=== PATIENT | male | born 1930 | race Caucasian/White ===

== ENCOUNTER 2016-10-13 10:16 | Emergency (ER) | payer OTHER ==
[~2016-10-13 10:16] MED LIST: ASPIRIN 81 LOW81 MG PO; CALCIUM CARBON500 MG PO; COUMADIN5 MG PO; CRESTOR20 MG PO; DEXILANT60 MG PO; ENABLEX15 MG PO; FISH OIL1000 M1 PO; LOVENOX80 MG/0.8 SC; PLAVIX75 MG PO; POTASSIUM CHLO10 ME2 PO; REQUIP1 MG PO; TOPROL XL50 MG PO; TRAZODONE HCL50 MG PO; TYLENOL325 MG PO; VITAMIN D-31000 UNIT PO; ZANTAC 7575 MG PO
--- NOTE | 2016-10-13 11:36 | ED NURSING NOTES ---
Clinical Report - Nurses [facility] [address] [place] [address] 10/13/2016 10:16 Patient: RAULITO CALIXTO TRIAGE Triage time 10:26. Acuity: LEVEL 3. Chief Complaint: RIGHT LOWER EXTREMITY PAIN. Location of symptoms- (Pain when walking about 5 minutes.). Alert. No acute distress. DINA COMA SCORE: [place] Coma Scale: 15- eyes open spontaneously (4); best verbal response- oriented x 4 (5); best motor response- obeys commands (6). --10:45 Magy Lagos R.N. 10:10/13/16. BP: 154/84. HR: 86. RR: 18. O2 saturation: 98%. Temp: 98.7 F. Pain level now: 6/10. Additional comments: walking makes it go to 8/10 . --10:45 Magy Lagos R.N. 10:10/13/16. BP: 154/84. HR: 86. RR: 18. O2 saturation: 98%. Temp: 98.7 F. Pain level now: 6/10. Additional comments: walking makes it go to 8/10 . --10:46 Magy Lagos R.N. Weight: 29.4 kg stated. Height/Length: 66 inches Per Patient. BMI: 10.5. --10:32 Magy Lagos R.N. Medications Calcium 600 Oral (Tablet 600 mg) 1 tablet, bid as needed. Crestor Oral 20 mg, pm. Dexilant Oral (Capsule Delayed Release 60 mg) 1 capsule, bid. Enablex Oral 15mg pm. Fish Oil Oral (Capsule 1000 mg) 1 capsule, bid. --10:37 Magy Lagos R.N. Potassium Oral 10 mg , daily. Requip Oral 1 mg, bid . Toprol XL Oral 50 mg, at bedtime. Vitamin D Oral 2000mg bid . Xarelto Oral 20mg am. --10:37 Magy Lagos R.N. Fluoxitine 20mg am. --10:44 Magy Lagos R.N. Medication/allergy information source: the patient. --10:45 Magy Lagos R.N. Allergies Doxycycline. --10:37 Magy Lagos R.N. History Arrived by private vehicle. Historian: patient. Accompanied by family. Primary physician (gracie jimenez). No injury occurred. This occurred (Hurt for last 2 weeks, today got worse.). Provoking / relieving factors: worsened by walking; relieved by sitting. He has had trouble walking (pain). Has had no swelling or redness. Treatment BILLING CHECKER: None. PAST MEDICAL HX: Tetanus status: unknown. SOCIAL HX: Never smoker. No alcohol use or drug use. FALL RISK ASSESSMENT: Fall risk assessment completed. No fall risk identified. NUTRITIONAL RISK ASSESSMENT: The nutritional risk assessment revealed no deficiencies. FUNCTIONAL ASSESSMENT: Functional assessment: no impairments noted. LEARNING NEEDS ASSESSMENT: The learning needs assessment revealed no barriers. SKIN INTEGRITY ASSESSMENT: Skin integrity risk assessment completed. No skin integrity risk identified. --10:45 Magy Lagos R.N. PROBLEMS: DVT - Deep Venous Thrombosis. Lumbar Strain. Contusion. Hypercholesterolemia. Hypertension. Gastroesophageal Reflux Disease. Depression. Restless Legs Syndrome. Hyperlipidemia. Coronary Artery Disease. --10:32 Magy Lagos R.N. ADDITIONAL SURGERIES: Back Surgery. Cardiac Catheterization. Cardiac Surgery. Cholecystectomy. Coronary Artery Bypass Graft. Hip Surgery. Knee Surgery. Pacemaker. Prostatectomy. Total Hip Replacement. --10:32 Magy Lagos R.N. Interventions ID band on patient. To room. --10:45 Magy Lagos R.N. PHYSICAL ASSESSMENT Ambulatory to room. Patient gowned. GENERAL / NEURO / PSYCH: Oriented X 4. Alert. Appears in no acute distress. Appears anxious. EXTREMITIES: Limited ROM present. Increased warmth on the extremities. Right leg: tenderness. SKIN: Skin intact. Skin is warm and dry. --10:46 Magy Lagos R.N. NURSING PROGRESS NOTES Extremity elevated. Patient gowned. Two patient identifiers checked. Call light placed in reach. Side rails up x 2. Bed placed in lowest position. Brakes of bed on. Patient ready for evaluation- chart flagged. --10:46 Magy Lagos R.N. Patient ID band checked for patient name and birthdate: patient confirmed. Blood samples drawn from the left antecubital space with 21g butterfly by tech per protocol ; labeled in presence of the patient and sent to lab: red, purple and blue top. --10:59 Mary Kay Tirado 11:41 10/13/2016 Ibuprofen PO 400 mg given. Allergies verified and confirmed 5 rights. --11:41 Ashlyn Daly R.N. DISPOSITION / DISCHARGE Condition at departure: improved. No learning barriers present. Discharge instructions provided and reviewed with the patient and family. Patient verbalized understanding. Written instructions provided in Slovak. The patient was discharged home and accompanied by family. He left the Emergency Department ambulatory and via private vehicle. Family member driving. Medication list reviewed and validated. --12:06 Magy Lagos R.N. 12:05 10/13/16. BP: 138/68. HR: 62. RR: 20. O2 saturation: 99% on room air. Temp: deferred. Pain level now: 0/10. 10:25 10/13/16. BP: 154/84. HR: 86. RR: 18. O2 saturation: 98%. Temp: 98.7 F. Pain level now: 6/10. Additional comments: walking makes it go to 8/10 . --12:06 Magy Lagos R.N. Locked/Released at 10/13/2016 12:06 by Magy Lagos R.N.
--- NOTE | 2016-10-13 11:36 | ED ORDER SUMMARY ---
..... Patient: RAULITO CALIXTO OrderSheet [facility] VisitID: [id number] [address] [place] [address] 85y, M Registration Date/Time: 10/13/2016 ORDER SHEET Weight: 29.4 kg (stated) Allergies: Doxycycline GENERAL ORDERS: US Venous Right (prior left lower ext DVT) Urgent (10:36 10/13/2016 [facility]) (Ack 10:41 LTapper) (11:41 MWinterer R.N.) CBC w Diff Urgent (10:36 10/13/2016 [facility]) (Ack 10:41 LTapper) (11:41 MWinterer R.N.) CMP Urgent (10:36 10/13/2016 [facility]) (Ack 10:41 LTapper) (11:41 MWinterer R.N.) PTT Urgent (10:36 10/13/2016 [facility]) (Ack 10:41 LTapper) (11:41 MWinterer R.N.) PT with INR Urgent (10:36 10/13/2016 [facility]) (Ack 10:41 LTapper) (11:41 MWinterer R.N.) MEDICATION ORDERS: Ibuprofen PO 400 mg (NOW) (11:35 10/13/2016 [facility]) (Ack 11:36 MWinterer R.N.) (11:41 MWinterer R.N.) IV FLUIDS: ORDER SHEET NOTES: [Electronically signed by Magy Lagos R.N. (12:06 10/13/2016)] [Electronically signed by Jamey Ramos DO (23:40 10/13/2016)] [Electronically locked/signed by Magy Lagos R.N. (12:06 10/13/2016)]
--- NOTE | 2016-10-13 11:36 | ED ORDER SUMMARY ---
..... Patient: RAULITO CALIXTO OrderSheet [facility] VisitID: [id number] [address] [place] [address] 85y, M Registration Date/Time: 10/13/2016 ORDER SHEET Weight: 29.4 kg (stated) Allergies: Doxycycline GENERAL ORDERS: US Venous Right (prior left lower ext DVT) Urgent (10:36 10/13/2016 [facility]) (Ack 10:41 LTapper) (11:41 MWinterer R.N.) CBC w Diff Urgent (10:36 10/13/2016 [facility]) (Ack 10:41 LTapper) (11:41 MWinterer R.N.) CMP Urgent (10:36 10/13/2016 [facility]) (Ack 10:41 LTapper) (11:41 MWinterer R.N.) PTT Urgent (10:36 10/13/2016 [facility]) (Ack 10:41 LTapper) (11:41 MWinterer R.N.) PT with INR Urgent (10:36 10/13/2016 [facility]) (Ack 10:41 LTapper) (11:41 MWinterer R.N.) MEDICATION ORDERS: Ibuprofen PO 400 mg (NOW) (11:35 10/13/2016 [facility]) (Ack 11:36 MWinterer R.N.) (11:41 MWinterer R.N.) IV FLUIDS: ORDER SHEET NOTES: [Electronically signed by Magy Lagos R.N. (12:06 10/13/2016)] [Electronically signed by Jamey Ramos DO (23:40 10/13/2016)] [Electronically locked/signed by Magy Lagos R.N. (12:06 10/13/2016)]
--- NOTE | 2016-10-13 11:36 | ED CLINICAL REPORT ---
Clinical Report - Physicians/Mid Levels [facility] [address] [place] [address] 10/13/2016 10:16 Patient: RAULITO CALIXTO Time Seen: 10:28. Arrived- By private vehicle. Historian- patient. HISTORY OF PRESENT ILLNESS Chief Complaint: LOWER EXTREMITY PAIN. This started about 2 weeks ago and is still present. It was gradual in onset. Not waxing and waning. Severity is described as being moderate. The quality is noted to be "pain" and similar to prior episodes. Symptoms located in the area of the right leg. The patient has had swelling. He has had difficulty walking. It has been associated with pain in the right leg. No bladder dysfunction or bowel dysfunction. Patient notes the possibility of an injury. Occurred at home. Similar symptoms previously: Recent medical care: Not recently seen/assessed. REVIEW OF SYSTEMS No chest pain, difficulty breathing, fever, skin rash or neck pain. No headache, sore throat, abdominal pain, vomiting or black stools. No difficulty with urination or bloody stools. The patient has had diarrhea (for weeks). This has occurred numerous times. It has been watery. No bloody diarrhea. All systems otherwise negative, except as recorded above. PAST HISTORY ( PCP: Dr Rene Problems: DVT - Deep Venous Thrombosis. Hypercholesterolemia. Hypertension. Gastroesophageal Reflux Disease. Depression. Restless Legs Syndrome. Hyperlipidemia. Coronary Artery Disease. Surgeries: Back Surgery. Cardiac Catheterization. Cardiac Surgery. Cholecystectomy. Coronary Artery Bypass Graft. Hip Surgery. Knee Surgery. Pacemaker. Prostatectomy. Total Hip Replacement.). Medications: Fluoxitine 20mg am. Potassium Oral 10 mg , daily. Requip Oral 1 mg, bid . Toprol XL Oral 50 mg, at bedtime. Vitamin D Oral 2000mg bid . Xarelto Oral 20mg am. Calcium 600 Oral (Tablet 600 mg) 1 tablet, bid as needed. Crestor Oral 20 mg, pm. Dexilant Oral (Capsule Delayed Release 60 mg) 1 capsule, bid. Enablex Oral 15mg pm. Fish Oil Oral (Capsule 1000 mg) 1 capsule, bid. Allergies: Doxycycline. SOCIAL HISTORY Never smoker. No alcohol use or drug use. ADDITIONAL NOTES The nursing notes have been reviewed. PHYSICAL EXAM Vital Signs: 10/13/2016 10:25 BP: 154/84. HR: 86. RR: 18. O2 saturation: 98%. Temp: 98.7 F. Pain level now: 10. Appearance: Alert. Oriented X3. Patient in mild distress. Eyes: Eyes normal inspection. No pale conjunctivae or scleral icterus. ENT: Pharynx normal. Neck: Normal inspection. Neck supple. CVS: Normal heart rate and rhythm. Heart sounds normal. Respiratory: No respiratory distress. Breath sounds normal. Abdomen: Soft and nontender. Back: No tenderness. Skin: Skin intact. Skin warm and dry. Normal skin color. Normal skin turgor. Extremities: Right leg: mild tenderness located in the posterior aspect of mid leg. Neurovascular intact distally. No erythema, swelling, laceration, abrasion or ecchymosis. No foreign body or deformity. Lower extremities exhibit normal ROM. No lower extremity edema. Extremities otherwise negative. Neuro: Oriented X 3. No motor deficit. No sensory deficit. LABS, X-RAYS, AND EKG Lower Extremity Sonography: Negative exam. Indication for study: extremity pain; suspected deep venous thrombosis in the right lower extremity. The exam was performed by a electronic systems technician. Laboratory Tests: CBC w Diff: (HANNAH: 10/13/2016 10:35) ( MsgRcvd 10/13/2016 11:07) Final results Test Result Flag Units (Reference) WHITE BLOOD COUNT 8.9 K/uL (4.5-11.5) RED BLOOD COUNT 4.78 M/uL (4.50-5.90) HEMOGLOBIN 14.8 gm/dL (13.5-17.5) HEMATOCRIT 44.4 % (41.0-53.0) MEAN CELL VOLUME 93 fL (80-100) MEAN CORPUSCULAR HGB 31 pg (26-34) MEAN CORPUSCULAR HGB CONC 33 g/dL (31-37) RED CELL DISTRIBUTION WIDTH 13.3 % (11.6-14.8) PLATELET COUNT 134 L K/uL (150-400) NEUTROPHIL % 56.2 % (50-75) LYMPH % 29.3 % (25-40) MONO % 11.7 % (3-14) EOSINOPHIL % 2.5 % (0-4) BASOPHIL % 0.3 % (0-2) PT with INR: (HANNAH: 10/13/2016 10:35) ( MsgRcvd 10/13/2016 11:14) Final results Test Result Flag Units (Reference) INR 1.9 H (0.8-1.2) Low Intensity Therapy: INR 1.5-2.0 PT range 18.5-23.1Mod.Intensity Therapy: INR 2.0-3.0 PT range 23.1-31.5High Intensity Therapy: INR 2.5-3.5 PT range 27.4-35.5High Intensity Therapy 2: INR 3.0-4.0 PT range 31.5-39.3 APTT 30 SECONDS (24-34) CMP: (HANNAH: 10/13/2016 10:35) ( MsgRcvd 10/13/2016 11:22) Final results Test Result Flag Units (Reference) GLUCOSE 127 H mg/dL (70-110) BUN 19 H mg/dL (7-18) CREATININE 1.1 mg/dL (0.6-1.3) Estimated GFR >60 mL/min Estimated GFR- >60 mL/min Note: Persistent reduction over 3 months in eGFR<60 mL/min/1.73 m2 defines CKD. Patients with eGFR values>=60 mL/min/1.73 m2 may also have CKD if evidence ofpersistent proteinuria. Additional information may be foundat www.kidney.org. SODIUM 141 mmol/L (136-145) POTASSIUM 4.5 mmol/L (3.5-5.1) CHLORIDE 104 mmol/L (98-107) CARBON DIOXIDE 26 mmol/L (21-32) CALCIUM 8.6 mg/dL (8.5-10.1) TOTAL PROTEIN 6.9 g/dL (6.4-8.2) ALBUMIN 3.6 g/dL (3.3-5.0) BILIRUBIN, TOTAL 1.8 H mg/dL (0.0-1.0) ALKALINE PHOSPHATASE 60 U/L (46-116) AST (SGOT) 26 U/L (15-37) ALT (SGPT) 26 U/L (12-78) . Pulse Oximetry: 10/13/2016 10:25 O2 saturation: 98%. (FIO2 - room air). Interpretation: normal. PROGRESS AND PROCEDURES Course of Care: Ibuprofen 400 mg PO given. Patient/family counseled. Old ED records reviewed. Disposition: Discharged. Condition: stable and improved. CLINICAL IMPRESSION Right calf pain. INSTRUCTIONS Apply ice. Elevate affected areas above chest level. Warnings: Further evaluation is necessary in order to recheck abnormal lab, obtain test results, conduct further tests and assess the possibility of serious illness. It is very important to follow up with a physician. GENERAL WARNINGS: Return or contact your physician immediately if your condition worsens or changes unexpectedly, if not improving as expected, or if other problems arise. Your Current Medications: CONTINUE TAKING THE FOLLOWING MEDICATIONS: Calcium 600 Oral : Tablet 600 mg, 1 tablet bid, prn. Crestor Oral : 20 mg pm. Dexilant Oral : Capsule Delayed Release 60 mg, 1 capsule bid. Enablex Oral : 15mg pm. Fish Oil Oral : Capsule 1000 mg, 1 capsule bid. Fluoxitine 20mg am*. Potassium Oral : 10 mg daily. Requip Oral : 1 mg bid. Toprol XL Oral : 50 mg at bedtime. Vitamin D Oral : 2000mg bid. Xarelto Oral : 20mg am. OTC Medications: Motrin (available over the counter): take according to label instructions. Follow-up with: Evan Rene MD, [facility], , [address], [place], [address] Follow up in about two days. (Electronically signed by Jamey Ramos DO 10/13/2016 23:40)
--- NOTE | 2016-10-13 13:04 | DIAGNOSTIC IMAGING REPORT ---
PROCEDURE: US VENOUS - RIGHT EXT INDICATION: Right lower extremity pain. History of left deep vein thrombosis. TECHNIQUE: Color Doppler duplex imaging of the deep and superficial venous system without and with compression. COMPARISON: None. FINDINGS: Deep and superficial venous system of the right lower extremity is within normal limits. There is no evidence of deep vein thrombosis or superficial thrombophlebitis. IMPRESSION: 1. Negative venous ultrasound of the right lower extremity.
--- NOTE | 2016-10-13 23:40 | ED MED RECONCILIATION SUMMARY ---
Patient: RAULITO CALIXTO Medication Reconciliation Report [facility] VisitID: [id number] [address] [place] [address] 85y, M Registration Date/Time: 10/13/2016 Weight: 29.4 kg Height/Length: 66 in. BMI: 10.5 ALLERGIES: Doxycycline The patient's Home Medications are listed below: CONTINUE TAKING THE FOLLOWING MEDICATIONS: Calcium 600 Oral (600 mg) 1 tablet, bid Crestor Oral 20 mg, pm Dexilant Oral (60 mg) 1 capsule, bid Enablex Oral 15mg pm Fish Oil Oral (1000 mg) 1 capsule, bid Fluoxitine 20mg am Potassium Oral 10 mg , daily Requip Oral 1 mg, bid Toprol XL Oral 50 mg, at bedtime Vitamin D Oral 2000mg bid Xarelto Oral 20mg am The source(s) of the original Home Medication information: patient The following Medications were given to the patient in the Emergency Department: Ibuprofen [PO] PO 400 mg, administered: 10/13/2016 11:41:00 AM The following Medications were prescribed to the patient: Motrin (available over the counter): take according to label instructions. -- Jamey Ramos DO
--- NOTE | 2016-10-13 23:40 | ED MAR SUMMARY ---
..... Medication Administration Record [facility] [address] [place] [address] Patient: RAULITO CALIXTO Visit ID: [id number] 85y, M Weight: 29.4 kg Height/Length: 66 in BMI: 10.5 ALLERGIES: Doxycycline Given 11:41 10/13/2016 Ashlyn Daly R.N. Medication Administered: IBUPROFEN [PO], Dose: 400 mg PO. Medication Ordered: Ibuprofen PO 400 mg (NOW).
--- NOTE | 2016-10-13 23:40 | ED MED RECONCILIATION SUMMARY ---
Patient: RAULITO CALIXTO Medication Reconciliation Report [facility] VisitID: [id number] [address] [place] [address] 85y, M Registration Date/Time: 10/13/2016 Weight: 29.4 kg Height/Length: 66 in. BMI: 10.5 ALLERGIES: Doxycycline The patient's Home Medications are listed below: CONTINUE TAKING THE FOLLOWING MEDICATIONS: Calcium 600 Oral (600 mg) 1 tablet, bid Crestor Oral 20 mg, pm Dexilant Oral (60 mg) 1 capsule, bid Enablex Oral 15mg pm Fish Oil Oral (1000 mg) 1 capsule, bid Fluoxitine 20mg am Potassium Oral 10 mg , daily Requip Oral 1 mg, bid Toprol XL Oral 50 mg, at bedtime Vitamin D Oral 2000mg bid Xarelto Oral 20mg am The source(s) of the original Home Medication information: patient The following Medications were given to the patient in the Emergency Department: Ibuprofen [PO] PO 400 mg, administered: 10/13/2016 11:41:00 AM The following Medications were prescribed to the patient: Motrin (available over the counter): take according to label instructions. -- Jamey Ramos DO
--- NOTE | 2016-10-13 23:40 | ED DISCHARGE INSTRUCTIONS ---
Patient: RAULITO CALIXTO General Instructions [facility] VisitID: [id number] [address] [place] [address] 85y, M Registration Date/Time: 10/13/2016 Right calf pain. INSTRUCTIONS Apply ice. Elevate affected areas above chest level. Warnings: Further evaluation is necessary in order to recheck abnormal lab, obtain test results, conduct further tests and assess the possibility of serious illness. It is very important to follow up with a physician. GENERAL WARNINGS: Return or contact your physician immediately if your condition worsens or changes unexpectedly, if not improving as expected, or if other problems arise. Your Current Medications: CONTINUE TAKING THE FOLLOWING MEDICATIONS: Calcium 600 Oral : Tablet 600 mg, 1 tablet bid, prn. Crestor Oral : 20 mg pm. Dexilant Oral : Capsule Delayed Release 60 mg, 1 capsule bid. Enablex Oral : 15mg pm. Fish Oil Oral : Capsule 1000 mg, 1 capsule bid. Fluoxitine 20mg am*. Potassium Oral : 10 mg daily. Requip Oral : 1 mg bid. Toprol XL Oral : 50 mg at bedtime. Vitamin D Oral : 2000mg bid. Xarelto Oral : 20mg am. OTC Medications: Motrin (available over the counter): take according to label instructions. Follow-up with: Evan Rene MD, [facility], , [address], [place], [address] Follow up in about two days. ADDITIONAL INFORMATION Myofascial Pain Syndrome: Fibrositis Your pain is caused by a state of chronic muscle tension. This condition is called by various names: myofascial pain, fibrositis and trigger point pain. This can also be due to mechanical stress (such as working at a computer terminal for long periods; or work that requires repetitive motions of the arms or hands) or emotional stress (such as problems on the job or in your personal life). Sometimes there is no obvious cause. The pain can occur in the area of the muscle spasm or at a site distant to it. For example, spasm of a neck muscle can cause headache. Spasm of the muscle near the shoulder blade can cause pain shooting down the arm. Home Care: Try to identify the factors that may be causing your problem and change them: If you feel thatemotional stressis a cause of your pain, learn methods to deal more effectively with the stress in your life. These may include regular exercise, muscle relaxation techniques, meditation or simply taking time out for yourself. Consult your doctor or go to a local bookstore and review the many books and tapes available on the subject of stress reduction. If you feel that physical stress is a cause for your pain, try to modify any poor work habits. You may use acetaminophen (Tylenol) or ibuprofen (Motrin, Advil) to control pain, unless another medicine was prescribed. [NOTE: If you have chronic liver or kidney disease or ever had a stomach ulcer or GI bleeding, talk with your doctor before using these medicines.] The use of heat to the muscle (hot compress or heating pad) will be helpful to reduce muscle spasm. Some persons get relief with ice packs. Apply an ice pack (crushed or cubed ice in a plastic bag, wrapped in a towel) for 20 minutes at a time as needed. Use the method that feels best to you. Massaging the trigger point and stretching out the muscleare an important parts of prevention and treatment. Trigger point massage can be done by first applying heat to the area to warm and prepare the muscle. Have someone apply steady thumb pressure directly on the knot in the muscle (the most tender point) for 30 seconds. Release the pressure, then massage the surrounding muscle. Repeat the process, applying more pressure to the trigger point each time. Do this up to the limit of pain. With each treatment, the trigger point should become less tender and the pain should decrease. You can apply local pressure to trigger points in the back by lying on the floor with a tennis ball under the trigger point. Follow Up with your doctor as advised or if not improving within the next week. It may be necessary for you to receive physical therapy if you do not respond to home treatment alone. Get Prompt Medical Attention if any of the following occur: If your trigger point is in the chest muscles, observe for pain that becomes more severe, lasts longer, or spreads into your shoulder/arm, neck or back; you develop trouble breathing, sweating, nausea or vomiting in association with chest pain If you develop weakness or numbness in an extremity If your pain worsens, regardless of its location Ibuprofen Oral tablet What is this medicine? IBUPROFEN (eye BYOO proe fen) is a non-steroidal anti-inflammatory drug (NSAID). It is used for dental pain, fever, headaches or migraines, osteoarthritis, rheumatoid arthritis, or painful monthly periods. It can also relieve minor aches and pains caused by a cold, flu, or sore throat. How should I use this medicine? Take this medicine by mouth with a glass of water. Follow the directions on the prescription label. Take this medicine with food if your stomach gets upset. Try to not lie down for at least 10 minutes after you take the medicine. Take your medicine at regular intervals. Do not take your medicine more often than directed. A special MedGuide will be given to you by the pharmacist with each prescription and refill. Be sure to read this information carefully each time. Talk to your office manager executive assistant regarding the use of this medicine in children. Special care may be needed. What side effects may I notice from receiving this medicine? Side effects that you should report to your doctor or health skin care instructor as soon as possible: allergic reactions like skin rash, itching or hives, swelling of the face, lips, or tongue black or bloody stools, blood in the urine or in vomit breathing problems changes in vision chest pain general ill feeling or flu-like symptoms nausea or vomiting redness, blistering, peeling or loosening of the skin, including inside the mouth slurred speech or weakness on one side of the body stomach pain unexplained weight gain or swelling unusually weak or tired yellowing of eyes or skin Side effects that usually do not require medical attention (report to your doctor or health skin care instructor if they continue or are bothersome): constipation or diarrhea dizziness gas or heartburn stomach upset What may interact with this medicine? Do not take this medicine with any of the following medications: cidofovir ketorolac methotrexate pemetrexed This medicine may also interact with the following medications: alcohol aspirin diuretics lithium other drugs for inflammation like prednisone warfarin What if I miss a dose? If you miss a dose, take it as soon as you can. If it is almost time for your next dose, take only that dose. Do not take double or extra doses. Where should I keep my medicine? Keep out of the reach of children. Store at room temperature between 15 and 30 degrees C (59 and 86 degrees F). Keep container tightly closed. Throw away any unused medicine after the expiration date. What should I tell my health care provider before I take this medicine? They need to know if you have any of these conditions: asthma cigarette smoker drink more than 3 alcohol containing drinks a day heart disease or circulation problems such as heart failure or leg edema (fluid retention) high blood pressure kidney disease liver disease stomach bleeding or ulcers an unusual or allergic reaction to ibuprofen, aspirin, other NSAIDS, other medicines, foods, dyes, or preservatives or trying to get breast-feeding What should I watch for while using this medicine? Tell your doctor or healthcare professional if your symptoms do not start to get better or if they get worse. This medicine does not prevent heart attack or stroke. In fact, this medicine may increase the chance of a heart attack or stroke. The chance may increase with longer use of this medicine and in people who have heart disease. If you take aspirin to prevent heart attack or stroke, talk with your doctor or health skin care instructor. Do not take other medicines that contain aspirin, ibuprofen, or naproxen with this medicine. Side effects such as stomach upset, nausea, or ulcers may be more likely to occur. Many medicines available without a prescription should not be taken with this medicine. This medicine can cause ulcers and bleeding in the stomach and intestines at any time during treatment. Ulcers and bleeding can happen without warning symptoms and can cause . To reduce your risk, do not smoke cigarettes or drink alcohol while you are taking this medicine. You may get drowsy or dizzy. Do not drive, use machinery, or do anything that needs mental alertness until you know how this medicine affects you. Do not stand or sit up quickly, especially if you are an older patient. This reduces the risk of dizzy or fainting spells. This medicine can cause you to bleed more easily. Try to avoid damage to your teeth and gums when you brush or floss your teeth. You have been given the following additional information: Myofascial Pain Syndrome Ibuprofen Oral tablet (Electronically signed by Jamey Ramos DO 10/13/2016 23:40)
--- NOTE | 2016-10-13 23:40 | ED MAR SUMMARY ---
..... Medication Administration Record [facility] [address] [place] [address] Patient: RAULITO CALIXTO Visit ID: [id number] 85y, M Weight: 29.4 kg Height/Length: 66 in BMI: 10.5 ALLERGIES: Doxycycline Given 11:41 10/13/2016 Ashlyn Daly R.N. Medication Administered: IBUPROFEN [PO], Dose: 400 mg PO. Medication Ordered: Ibuprofen PO 400 mg (NOW).
--- NOTE | 2016-10-13 23:40 | ED DISCHARGE INSTRUCTIONS ---
Patient: RAULITO CALIXTO General Instructions [facility] VisitID: [id number] [address] [place] [address] 85y, M Registration Date/Time: 10/13/2016 Right calf pain. INSTRUCTIONS Apply ice. Elevate affected areas above chest level. Warnings: Further evaluation is necessary in order to recheck abnormal lab, obtain test results, conduct further tests and assess the possibility of serious illness. It is very important to follow up with a physician. GENERAL WARNINGS: Return or contact your physician immediately if your condition worsens or changes unexpectedly, if not improving as expected, or if other problems arise. Your Current Medications: CONTINUE TAKING THE FOLLOWING MEDICATIONS: Calcium 600 Oral : Tablet 600 mg, 1 tablet bid, prn. Crestor Oral : 20 mg pm. Dexilant Oral : Capsule Delayed Release 60 mg, 1 capsule bid. Enablex Oral : 15mg pm. Fish Oil Oral : Capsule 1000 mg, 1 capsule bid. Fluoxitine 20mg am*. Potassium Oral : 10 mg daily. Requip Oral : 1 mg bid. Toprol XL Oral : 50 mg at bedtime. Vitamin D Oral : 2000mg bid. Xarelto Oral : 20mg am. OTC Medications: Motrin (available over the counter): take according to label instructions. Follow-up with: Evan Rene MD, [facility], , [address], [place], [address] Follow up in about two days. ADDITIONAL INFORMATION Myofascial Pain Syndrome: Fibrositis Your pain is caused by a state of chronic muscle tension. This condition is called by various names: myofascial pain, fibrositis and trigger point pain. This can also be due to mechanical stress (such as working at a computer terminal for long periods; or work that requires repetitive motions of the arms or hands) or emotional stress (such as problems on the job or in your personal life). Sometimes there is no obvious cause. The pain can occur in the area of the muscle spasm or at a site distant to it. For example, spasm of a neck muscle can cause headache. Spasm of the muscle near the shoulder blade can cause pain shooting down the arm. Home Care: Try to identify the factors that may be causing your problem and change them: If you feel thatemotional stressis a cause of your pain, learn methods to deal more effectively with the stress in your life. These may include regular exercise, muscle relaxation techniques, meditation or simply taking time out for yourself. Consult your doctor or go to a local bookstore and review the many books and tapes available on the subject of stress reduction. If you feel that physical stress is a cause for your pain, try to modify any poor work habits. You may use acetaminophen (Tylenol) or ibuprofen (Motrin, Advil) to control pain, unless another medicine was prescribed. [NOTE: If you have chronic liver or kidney disease or ever had a stomach ulcer or GI bleeding, talk with your doctor before using these medicines.] The use of heat to the muscle (hot compress or heating pad) will be helpful to reduce muscle spasm. Some persons get relief with ice packs. Apply an ice pack (crushed or cubed ice in a plastic bag, wrapped in a towel) for 20 minutes at a time as needed. Use the method that feels best to you. Massaging the trigger point and stretching out the muscleare an important parts of prevention and treatment. Trigger point massage can be done by first applying heat to the area to warm and prepare the muscle. Have someone apply steady thumb pressure directly on the knot in the muscle (the most tender point) for 30 seconds. Release the pressure, then massage the surrounding muscle. Repeat the process, applying more pressure to the trigger point each time. Do this up to the limit of pain. With each treatment, the trigger point should become less tender and the pain should decrease. You can apply local pressure to trigger points in the back by lying on the floor with a tennis ball under the trigger point. Follow Up with your doctor as advised or if not improving within the next week. It may be necessary for you to receive physical therapy if you do not respond to home treatment alone. Get Prompt Medical Attention if any of the following occur: If your trigger point is in the chest muscles, observe for pain that becomes more severe, lasts longer, or spreads into your shoulder/arm, neck or back; you develop trouble breathing, sweating, nausea or vomiting in association with chest pain If you develop weakness or numbness in an extremity If your pain worsens, regardless of its location Ibuprofen Oral tablet What is this medicine? IBUPROFEN (eye BYOO proe fen) is a non-steroidal anti-inflammatory drug (NSAID). It is used for dental pain, fever, headaches or migraines, osteoarthritis, rheumatoid arthritis, or painful monthly periods. It can also relieve minor aches and pains caused by a cold, flu, or sore throat. How should I use this medicine? Take this medicine by mouth with a glass of water. Follow the directions on the prescription label. Take this medicine with food if your stomach gets upset. Try to not lie down for at least 10 minutes after you take the medicine. Take your medicine at regular intervals. Do not take your medicine more often than directed. A special MedGuide will be given to you by the pharmacist with each prescription and refill. Be sure to read this information carefully each time. Talk to your supervisor beet end regarding the use of this medicine in children. Special care may be needed. What side effects may I notice from receiving this medicine? Side effects that you should report to your doctor or health career development consultant as soon as possible: allergic reactions like skin rash, itching or hives, swelling of the face, lips, or tongue black or bloody stools, blood in the urine or in vomit breathing problems changes in vision chest pain general ill feeling or flu-like symptoms nausea or vomiting redness, blistering, peeling or loosening of the skin, including inside the mouth slurred speech or weakness on one side of the body stomach pain unexplained weight gain or swelling unusually weak or tired yellowing of eyes or skin Side effects that usually do not require medical attention (report to your doctor or health career development consultant if they continue or are bothersome): constipation or diarrhea dizziness gas or heartburn stomach upset What may interact with this medicine? Do not take this medicine with any of the following medications: cidofovir ketorolac methotrexate pemetrexed This medicine may also interact with the following medications: alcohol aspirin diuretics lithium other drugs for inflammation like prednisone warfarin What if I miss a dose? If you miss a dose, take it as soon as you can. If it is almost time for your next dose, take only that dose. Do not take double or extra doses. Where should I keep my medicine? Keep out of the reach of children. Store at room temperature between 15 and 30 degrees C (59 and 86 degrees F). Keep container tightly closed. Throw away any unused medicine after the expiration date. What should I tell my health care provider before I take this medicine? They need to know if you have any of these conditions: asthma cigarette smoker drink more than 3 alcohol containing drinks a day heart disease or circulation problems such as heart failure or leg edema (fluid retention) high blood pressure kidney disease liver disease stomach bleeding or ulcers an unusual or allergic reaction to ibuprofen, aspirin, other NSAIDS, other medicines, foods, dyes, or preservatives or trying to get breast-feeding What should I watch for while using this medicine? Tell your doctor or healthcare professional if your symptoms do not start to get better or if they get worse. This medicine does not prevent heart attack or stroke. In fact, this medicine may increase the chance of a heart attack or stroke. The chance may increase with longer use of this medicine and in people who have heart disease. If you take aspirin to prevent heart attack or stroke, talk with your doctor or health career development consultant. Do not take other medicines that contain aspirin, ibuprofen, or naproxen with this medicine. Side effects such as stomach upset, nausea, or ulcers may be more likely to occur. Many medicines available without a prescription should not be taken with this medicine. This medicine can cause ulcers and bleeding in the stomach and intestines at any time during treatment. Ulcers and bleeding can happen without warning symptoms and can cause . To reduce your risk, do not smoke cigarettes or drink alcohol while you are taking this medicine. You may get drowsy or dizzy. Do not drive, use machinery, or do anything that needs mental alertness until you know how this medicine affects you. Do not stand or sit up quickly, especially if you are an older patient. This reduces the risk of dizzy or fainting spells. This medicine can cause you to bleed more easily. Try to avoid damage to your teeth and gums when you brush or floss your teeth. You have been given the following additional information: Myofascial Pain Syndrome Ibuprofen Oral tablet (Electronically signed by Jamey Ramos DO 10/13/2016 23:40)
== END 2016-10-13 12:07 | disposition home or self-care (01) ==
LOC: ED SRH 10:16
DX: M79.661 Pain in right lower leg (principal); I10 Essential (primary) hypertension; Z86.718 Personal history of other venous thrombosis and embolism; I25.10 Atherosclerotic heart disease of native coronary artery without angina pectoris; Z79.899 Other long term (current) drug therapy; Z88.1 Allergy status to other antibiotic agents